=== PATIENT | female | born 2000 ===

== ENCOUNTER 2024-01-18 02:30 | Outpatient (CLI) | payer BC ==
[2024-01-18] VITALS (15 sets, daily range): BP systolic 43–144; BP diastolic 28–93; PULSE 61–107
== END 2024-01-18 23:59 | disposition home or self-care (01) ==
LOC: CARD DIAG 02:30
PROVIDERS: ATTEND Internal Medicine Interventional Cardiology
DX: R55 Syncope and collapse (principal)
CPT/HCPCS: 93660